=== PATIENT | female | born 1960 | race Caucasian/White ===

== ENCOUNTER → 2017-02-07 16:30 | Outpatient (CLI) | payer BC ==
[2015-09-10 07:00] VITALS: BMI 30.1
[~2017-02-07 16:30] MED LIST: AMBIEN10 MG PO; GLIMEPIRIDE4 MG PO; GLUCOPHAGE1000 MG PO; LIPITOR10 MG PO; LOTREL 10-40 M1 EACH PO; NEURONTIN 300300 MG; ULTRAM50 MG PO
== END | disposition home or self-care (01) ==
LOC: D.MAMMO 13:30
DX: Z85.3 Personal history of malignant neoplasm of breast (principal); Z12.31 Encounter for screening mammogram for malignant neoplasm of breast

== ENCOUNTER 2018-02-06 08:00 | Outpatient (CLI) | payer OTHER ==
[2015-09-10 07:00] VITALS: BMI 30.1
== END 2018-02-06 09:00 | disposition home or self-care (01) ==
LOC: D.MAMMO 08:00
DX: C50.919 Malignant neoplasm of unspecified site of unspecified female breast (principal)

== ENCOUNTER 2019-02-07 08:30 | Outpatient (CLI) | payer MEDICARE ==
[2015-09-10 07:00] VITALS: BMI 30.1
== END 2019-02-07 09:00 | disposition home or self-care (01) ==
LOC: D.MAMMO 08:30
PROVIDERS: ATTEND Family Medicine
DX: Z12.31 Encounter for screening mammogram for malignant neoplasm of breast (principal)

== ENCOUNTER 2019-02-28 09:00 | Outpatient (CLI) | payer MEDICARE ==
[2015-09-10 07:00] VITALS: BMI 30.1
== END 2019-02-28 10:00 | disposition home or self-care (01) ==
LOC: D.MAMMO 09:00
PROVIDERS: ATTEND Family Medicine
DX: R92.8 Other abnormal and inconclusive findings on diagnostic imaging of breast (principal)

== ENCOUNTER → 2020-07-15 10:07 | Outpatient (CLI) | payer BC ==
[2015-09-10 07:00] VITALS: BMI 30.1
== END | disposition home or self-care (01) ==
LOC: D.CT 10:07
PROVIDERS: ATTEND Psychiatry & Neurology Neurology
DX: G43.009 Migraine without aura, not intractable, without status migrainosus (principal)

== ENCOUNTER 2020-08-19 20:00 | Outpatient (CLI) | payer BC ==
[2015-09-10 07:00] VITALS: BMI 30.1
== END 2020-08-19 23:29 | disposition home or self-care (01) ==
LOC: D.MAMMO 20:00
PROVIDERS: ATTEND Family Medicine
DX: Z12.31 Encounter for screening mammogram for malignant neoplasm of breast (principal)